=== PATIENT | male | born 1990 | race Caucasian/White ===

== ENCOUNTER 2019-06-01 14:12 | Emergency (ER) | payer OTHER ==
[2019-06-01 15:02] VITALS: BP 148/86; PULSE 51; TEMP 97.8; BMI 36.2
--- NOTE | 2019-06-01 15:03 | PDOC ---
Rapid Medical Evaluation Chief Complaint: Toothache Time Seen by Provider: 06/01/19 15:02 Medical Evaluation: Allergies Allergy/AdvReac Type Severity Reaction Status Date / Time No Known Allergies Allergy Verified 06/01/19 14:59 Vital Signs Temp Pulse Resp BP Pulse Ox 97.8 F 51 L 14 148/86 98 06/01/19 15:00 06/01/19 15:00 06/01/19 15:00 06/01/19 15:00 06/01/19 15:00 06/01/19 15:03 Pt c/o: [place] with pain, no meds taken, needs to see a dentist Pt on brief exam: + caries, no abscess Pt ordered for: none pt to proceed to the ED Discharge Disposition - Diagnosis Tooth pain - Discharge Dispostion Disposition: HOME Condition at time of disposition: Stable - Prescriptions Prescriptions: Amoxicillin - [Amoxicillin 500mg Capsule -] 500 mg PO TID #21 capsule Ibuprofen [Motrin -] 600 mg PO TID #30 tablet Ibuprofen [Motrin -] 600 mg PO TID #30 tablet - Referrals Referrals: [facility] [Outside] - Patient Instructions Additional Instructions: Without fail follow-up with urgent care dental in 1 to 2 days for further evaluation and treatment options. You may take Tylenol on top of the Motrin that I have prescribed for you. The antibiotic is necessary to prevent infection. Without fail follow-up with urgent care dental in 1 to 2 days and return to the emergency room should symptoms worsen. - Post Discharge Activity
--- NOTE | 2019-06-01 17:11 | PDOC ---
History of Present Illness - General Chief Complaint: Toothache Stated Complaint: TOOTHACHE Time Seen by Provider: 06/01/19 15:02 - History of Present Illness Initial Comments: 06/01/19 17:09 28-year-old male without comorbidities presents for evaluation of toothache x4 days Past History - Past Medical History Allergies/Adverse Reactions: Allergies Allergy/AdvReac Type Severity Reaction Status Date / Time No Known Allergies Allergy Verified 06/01/19 14:59 Home Medications: Ambulatory Orders Ibuprofen [Motrin -] 600 mg PO TID #30 tablet 06/01/19 NK [No Known Home Medication] 06/01/19 COPD: No - Psycho Social/Smoking Cessation Hx Smoking History: Never smoked Have you smoked in the past 12 months: No Number of Cigarettes Smoked Daily: 0 Hx Alcohol Use: No Drug/Substance Use Hx: No Substance Use Type: None Review of Systems - Review of Systems Constitutional: No: Fever HEENTM: Yes: Dental Problems *Physical Exam - Vital Signs Last Vital Signs Temp Pulse Resp BP Pulse Ox 97.8 F 51 L 14 148/86 98 06/01/19 15:00 06/01/19 15:00 06/01/19 15:00 06/01/19 15:00 06/01/19 15:00 - Physical Exam 06/01/19 17:09 GENERAL: The patient is awake, alert, and fully oriented, in no acute distress. HEAD: Normal with no signs of trauma. EYES: sclera anicteric, conjunctiva clear. ENT: Ears normal tympanic membranes normal oropharynx clear uvula midline NECK: Normal range of motion LUNGS: Breath sounds equal, clear to auscultation bilaterally. No wheezes, and no crackles. HEART: S1 and S2 without murmur, rub or gallop. ABDOMEN: Soft, nontender, normoactive bowel sounds. No guarding, no rebound. No masses. EXTREMITIES: Normal range of motion, no edema. No clubbing or cyanosis. No cords, erythema, or tenderness. NEUROLOGICAL: Cranial nerves II through XII grossly intact. PSYCH: Normal mood, normal affect. SKIN: Warm, Dry, normal turgor, no rashes or lesions noted. Widespread dental decay left anterior incisors and premolars are decayed and torn down no areas of focal fluctuance Medical Decision Making - Medical Decision Making 02/04/20 17:10 Amoxicillin follow-up with urgent care dental Discharge - Discharge Information Problems reviewed: Yes Clinical Impression/Diagnosis: Tooth pain Condition: Stable Disposition: HOME - Admission No - Additional Discharge Information Prescriptions: Amoxicillin - [Amoxicillin 500mg Capsule -] 500 mg PO TID #21 capsule - Follow up/Referral Referrals: [facility] [Outside] - Patient Discharge Instructions Additional Instructions: Without fail follow-up with urgent care dental in 1 to 2 days for further evaluation and treatment options. You may take Tylenol on top of the Motrin that I have prescribed for you. The antibiotic is necessary to prevent infection. Without fail follow-up with urgent care dental in 1 to 2 days and return to the emergency room should symptoms worsen. - Post Discharge Activity
[2019-06-01] MEDS ORDERED: IBUPROFEN 600 MG TABLET (FP) PO ONE ×2 (17:33→17:36)
== END 2019-06-01 17:18 | disposition home or self-care (01) ==
LOC: JERFT 14:12
DX: K08.89 Other specified disorders of teeth and supporting structures (principal); K02.9 Dental caries, unspecified
CPT/HCPCS: 99281-25

== ENCOUNTER 2019-06-10 22:58 | Emergency (ER) | payer SELFPAY ==
[2019-06-10 23:25] VITALS: BP 124/61; PULSE 80; TEMP 98.1; BMI 36.2
[2019-06-11] MEDS ORDERED: IBUPROFEN 600 MG TABLET (FP) PO ONE ×2 (00:42→00:44)
--- NOTE | 2019-06-11 00:50 | PDOC ---
History of Present Illness - General Chief Complaint: Toothache Stated Complaint: ABSCESS Time Seen by Provider: 06/11/19 00:13 History Source: Patient Exam Limitations: No Limitations - History of Present Illness Initial Comments: 06/11/19 00:45 28-year-old male denies past medical history presents complaining of left upper dental pain for the past 4 days. Seen at this ED on June 01, 2019 for same reason, treated with amoxicillin 500 3 times daily x7 days and ibuprofen as needed at that time. Advised to follow-up with a dentist which he has not been able to see as of yet. Denies fever, chills, trauma, headache or any other complaint. ROS: Dental pain PE: GENERAL: well-appearing, NAD HEAD: NCAT EYES: Pupils equal, round and reactive to light, sclera anicteric, conjunctiva clear ENT: Poor dentition, several missing teeth, teeth #9 through 12 with decay, no pus pocket noted, no facial swelling, pharynx: no erythema, no exudate, uvula midline NECK: supple CHEST: nontender RESP: clear, no w/r/r CARDIO: rrr, no m/g/r ABD: +BS, soft, nontender, non distended BACK: no midline spinal ttp, no CVAT EXTREMITIES: Normal range of motion, no edema NEUROLOGICAL: Normal speech, normal gait SKIN: Warm, Dry 06/11/19 00:51 Is this a multiple visit Asthma Patient?: No Past History - Past Medical History Allergies/Adverse Reactions: Allergies Allergy/AdvReac Type Severity Reaction Status Date / Time No Known Allergies Allergy Verified 06/10/19 23:19 Home Medications: Ambulatory Orders Amoxicillin - [Amoxicillin 500mg Capsule -] 500 mg PO TID #21 capsule 06/01/19 Ibuprofen [Motrin -] 600 mg PO TID #30 tablet 06/01/19 Ibuprofen [Motrin -] 600 mg PO TID #30 tablet 06/01/19 Amoxicillin - [Amoxicillin 500mg Capsule -] 500 mg PO TID #21 capsule 06/11/19 Ibuprofen 600 mg PO Q6H #20 tablet 06/11/19 COPD: No - Psycho Social/Smoking Cessation Hx Smoking History: Never smoked Have you smoked in the past 12 months: No Number of Cigarettes Smoked Daily: 0 Information on smoking cessation initiated: No Hx Alcohol Use: No Drug/Substance Use Hx: Yes Substance Use Type: None *Physical Exam - Vital Signs Last Vital Signs Temp Pulse Resp BP Pulse Ox 98.1 F 80 18 124/61 100 06/10/19 23:17 06/10/19 23:17 06/10/19 23:17 06/10/19 23:17 06/10/19 23:17 Medical Decision Making - Medical Decision Making 06/11/19 00:49 28-year-old male denies past medical history presents with poor dentition, complaining of dental pain. Treat with amoxicillin 500 mg 3 times daily x7 days and ibuprofen 600 mg every 6 as needed Urged patient to follow-up with a dentist within 1 to 2 days Return to ED if symptoms worsen Discharge - Discharge Information Problems reviewed: Yes Clinical Impression/Diagnosis: Pain, dental, Pain due to dental caries Condition: Stable Disposition: HOME - Admission No - Additional Discharge Information Prescriptions: Amoxicillin - [Amoxicillin 500mg Capsule -] 500 mg PO TID #21 capsule Ibuprofen 600 mg PO Q6H #20 tablet - Follow up/Referral - Patient Discharge Instructions Additional Instructions: Take amoxicillin 500 mg 3 times a day for 7 days Take ibuprofen 600 mg every 6 hours as needed for pain Follow-up with your dentist within 1 to 2 days Return to ED if symptoms worsen - Post Discharge Activity
== END 2019-06-11 01:05 | disposition home or self-care (01) ==
LOC: JER 22:58
DX: K02.9 Dental caries, unspecified (principal)
CPT/HCPCS: 99283-25

== ENCOUNTER 2020-05-31 22:07 | Emergency (ER) | payer SELFPAY ==
[2020-05-31] MEDS ORDERED: IBUPROFEN 400 MG TABLET (FP) PO ONE ×2 (22:31→22:34)
[2020-05-31 22:53] VITALS: BP 124/73; PULSE 80; TEMP 98; BMI 35.9
== END 2020-05-31 22:48 | disposition home or self-care (01) ==
LOC: FER 22:07
DX: M54.5 Low back pain (principal)
CPT/HCPCS: 99283-25

== ENCOUNTER 2021-03-07 10:48 | Emergency (ER) | payer SELFPAY ==
[2021-03-07 10:52] VITALS: BP 133/76; PULSE 74; TEMP 98.7; BMI 37.6
[2021-03-07] MEDS ORDERED: NAPROXEN 500 MG TABLET PO ONE (10:55)
[2021-03-07] MEDS ORDERED: AMOX TR/POT CLAV 875MG/125MG TABLETS (FP) PO ONE (10:55)
[2021-03-07] MEDS ORDERED: AMOX TR/POT CLAV 875MG/125MG TABLETS (FP) ONE (10:58)
[2021-03-07] MEDS ORDERED: NAPROXEN 500 MG TABLET ONE (10:58)
== END 2021-03-07 11:06 | disposition home or self-care (01) ==
LOC: FER 10:48
DX: K02.9 Dental caries, unspecified (principal); R68.84 Jaw pain; K08.89 Other specified disorders of teeth and supporting structures
CPT/HCPCS: 99283-25